=== PATIENT | female | born 1995 | race Caucasian/White ===

== ENCOUNTER 2016-09-19 11:06 | Emergency (ER) | payer BC ==
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
[2016-09-19 12:26] VITALS: BP 113/75
== END 2016-09-19 12:45 | disposition home or self-care (01) ==
LOC: KA.ED 11:06
DX: S49.91XA Unspecified injury of right shoulder and upper arm, initial encounter (principal); W22.8XXA Striking against or struck by other objects, initial encounter
CPT/HCPCS: 73000-RT; 99283